=== PATIENT | male | born 1960 | race Caucasian/White ===

== ENCOUNTER 2025-01-24 13:17 | Emergency (ER) | payer MEDICAID, OTHER ==
[2025-01-24 13:53] LABS: PLATELET COUNT,PLT 274 K/uL (130-375); RED BLOOD CELL COUNT 5.03 M/uL (4.14-5.76); WHITE BLOOD CELL COUNT,WBC 8.4 K/uL (3.2-11.0)
[2025-01-24] MEDS: Iopamidol 755 Mg/ML 100 ML Bottle IV ONE (14:03)
[2025-01-24] MEDS: Sodium Chloride 0.9% 10 ML Syringe FLUSH ONE (14:03)
[2025-01-24 14:13] LABS: A/G RATIO 1.0 (1.2-2.2); ALANINE AMINOTRANSFERASE,ALT 31 U/L (12-78); ASPARTATE AMNIOTRANSFERASE,AST 22 U/L (15-37); BILIRUBIN TOTAL 0.3 mg/dL (0.2-1.0); BLOOD UREA NITROGEN,BUN 24 mg/dL (7-18); CARBON DIOXIDE,CO2 28 mmol/L (21-32); CHLORIDE,CL 107 mmol/L (100-108); CREATININE 0.9 mg/dL (0.8-1.3); EST CRCL DRUG DOSING (CG) 99.10 mL/min; ESTIMATED GFR 95 mL/min (>60); GLUCOSE RANDOM 143 mg/dL (74-106); POTASSIUM,K 4.3 mmol/L (3.6-5.2); PROTEIN TOTAL,TP 6.7 g/dL (6.4-8.2); SODIUM,NA 142 mmol/L (140-148)
[2025-01-24 14:15] LABS: ATYPICAL LYMPHOCYTES RARE; BAND ABSOLUTE MAN 0.08 K/uL; BAND PERCENT MAN 1 % (5-11); EOSINOPHILS ABSOLUTE MAN 0.08 K/uL (0.00-0.40); EOSINOPHILS PERCENT MAN 1 % (2-4); LYMPHOCYTES ABSOLUTE MAN 1.85 K/uL (0.8-3.3); LYMPHOCYTES PERCENT MAN 22 % (24-44); MONOCYTES ABSOLUTE MAN 0.76 K/uL (0.20-0.90); MONOCYTES PERCENT MAN 9 % (2-6); NEUTROPHILS ABSOLUTE MAN 5.63 K/uL (1.0-7.6); SEG NEUTROPHILS PERCENT MAN 67 % (36-66)
[2025-01-24 15:03] LABS: APPEARANCE,URINE CLEAR (CLEAR); GLUCOSE,URINE NEGATIVE (NEGATIVE); OCCULT BLOOD,URINE TRACE-INTACT (NEGATIVE)
[2025-01-24 15:10] LABS: SQUAMOUS EPITHELIAL CELLS,UR RARE /HPF; UROTHELIAL CELLS,URINE NOT SEEN /HPF
== END 2025-01-24 16:10 ==
LOC: JP.ED 13:17
DX: I63.89 Other cerebral infarction (principal); F17.200 Nicotine dependence, unspecified, uncomplicated; Z79.82 Long term (current) use of aspirin; Z79.899 Other long term (current) drug therapy
CPT/HCPCS: 36415; 37195; 70450; 70496; 70498; 80053; 81001; 85025; 93005; 93010; 99291; 99292; A9270; J3101; Q9967